=== PATIENT | male | born 1960 | race Caucasian/White ===

== ENCOUNTER → 2022-09-23 15:52 | Outpatient (CLI) | payer OTHER, SELFPAY ==
--- NOTE | ~2022-09-23 | MR_ITS ---
MRI of the left shoulder Technique: Axial proton-density fat-sat images, coronal proton density fat-sat and T2 fat-sat images, and sagittal T1-weighted and T2 fat-sat images were acquired. Clinical History: Pain Findings: There is moderate AC joint degenerative change, with small subacromial spur. Coracoclavicul ar, coracoacromial, and coracohumeral ligaments are intact. There is evidence of prior retainer cuff repair surgery. Supraspinatus and infraspinatus tendons appe ar to be intact without definite full-thickness tear. There is probable postoperative increased signa l within the tendons. Subscapularis tendon is intact with mild to moderate tendinosis. Tendon of the long head of the biceps appears to be intact. No labral tear evident. Inferior glenohumeral ligament is intact. Minimal glenohumeral joint effusion present. No degenerativ e change of the glenohumeral joint. No significant fluid distention of the subacromial/subdeltoid bur sa. No muscle atrophy or edema evident. Impression: Status post rotator cuff repair surgery. Probable postoperative signal change in the supraspinatus an d infraspinatus tendons without definite recurrent tear. MR arthrogram could be considered to more de finitively exclude partial-thickness articular surface tearing. Mild to moderate subscapularis tendinosis. Moderate AC joint degenerative change. Reviewed, dictated and finalized at [facility]. Impression: Status post rotator cuff repair surgery. Probable postoperative signal change i n the supraspinatus and infraspinatus tendons without definite recurrent tear. MR arthrogram could be considered to more definitively exclude partial-thicknes s articular surface tearing. Mild to moderate subscapularis tendinosis. Moderate AC joint degenerative change.
== END ==
PROVIDERS: PCP Internal Medicine
DX: Z98.890 Other specified postprocedural states (principal); M19.012 Primary osteoarthritis, left shoulder
CPT/HCPCS: 73221